=== PATIENT | male | born 2000 | race African-American/Black ===

== ENCOUNTER 2018-05-11 11:36 | Emergency (ER) | payer OTHER ==
[~2018-05-11] VITALS: Ht 177.8 cm; Wt 72.7 kg
[2018-05-11 11:41] VITALS: BP 116/78; TEMP 100.7
[2018-05-11] MEDS ORDERED: ZOFRAN ODT4 MG PO (12:40)
[2018-05-11] MEDS ORDERED: AMOXICILLIN875 MG PO (12:40)
[2018-05-11 12:50] VITALS: PULSE 106
== END 2018-05-11 12:50 | disposition home or self-care (01) ==
LOC: COL.ER 11:36
DX: J03.00 Acute streptococcal tonsillitis, unspecified (principal); R50.9 Fever, unspecified

== ENCOUNTER 2019-07-06 18:21 | Emergency (ER) | payer OTHER ==
[~2019-07-06] VITALS: Ht 177.8 cm; Wt 77.3 kg
[~2019-07-06 18:21] MED LIST: AMOXICILLIN875 MG PO; ZOFRAN ODT4 MG PO
[2019-07-06 18:45] VITALS: BP 140/101; TEMP 98
[2019-07-06 21:03] VITALS: PULSE 72
== END 2019-07-06 21:00 | disposition home or self-care (01) ==
LOC: COL.ER 18:21
DX: S06.0X0A Concussion without loss of consciousness, initial encounter (principal); R40.2412 Glasgow coma scale score 13-15, at arrival to emergency department; W00.0XXA Fall on same level due to ice and snow, initial encounter; Y92.009 Unspecified place in unspecified non-institutional (private) residence as the place of occurrence of the external cause